=== PATIENT | female | born 1960 | race Two or more races ===

== ENCOUNTER 2019-09-19 21:43 | Emergency (ER) | payer MEDICAID ==
[~2019-09-19] VITALS: Ht 162.6 cm; Wt 73.9 kg
[2019-09-19 22:15] VITALS: BP 151/87
--- NOTE | 2019-09-19 22:48 | NUR ---
XRAY TAKEN AT THE BEDSIDE.
--- NOTE | 2019-09-19 23:20 | NUR ---
CALLING VALERIO RE: LISETTE LOPEZ.
--- NOTE | 2019-09-19 23:45 | NUR ---
ANGI BANDAGE APPLIED TO THE RT KNEE.
== END 2019-09-20 00:10 | disposition home or self-care (01) ==
LOC: ER 21:45
DX: M25.461 Effusion, right knee (principal); Z98.890 Other specified postprocedural states
CPT/HCPCS: 73564-TC

== ENCOUNTER 2019-09-26 22:15 | Emergency (ER) | payer MEDICAID, OTHER ==
[~2019-09-26] VITALS: Ht 165.1 cm; Wt 73.5 kg
[2019-09-26 22:18] VITALS: BP 155/91
== END 2019-09-27 00:11 | disposition home or self-care (01) ==
LOC: ER 22:20
DX: M25.561 Pain in right knee (principal); R22.41 Localized swelling, mass and lump, right lower limb; Z98.890 Other specified postprocedural states
CPT/HCPCS: 93971-TC

== ENCOUNTER 2023-03-28 20:03 | Emergency (ER) | payer OTHER ==
[~2023-03-28] VITALS: Ht 160 cm; Wt 70.3 kg
[2023-03-28 20:37] VITALS: BP 142/68; TEMP 98.1; O2SAT 98
[2023-03-28] MEDS ORDERED: ACETAMINOPHEN ES 500 MG TABLET ONE (21:25)
[2023-03-28] MEDS ORDERED: ACETAMINOPHEN 325 MG TABLET PO ONE (21:30)
[2023-03-28] MEDS ORDERED: NAPR-1164 PO (22:08)
== END 2023-03-28 22:15 | disposition home or self-care (01) ==
LOC: ER 20:08
DX: M17.12 Unilateral primary osteoarthritis, left knee (principal); Z98.890 Other specified postprocedural states
CPT/HCPCS: 73564-TC; 73590-TC

== ENCOUNTER 2024-02-14 11:07 | Emergency (ER) | payer OTHER ==
[~2024-02-14] VITALS: Ht 160 cm; Wt 72.6 kg
[~2024-02-14 11:07] MED LIST: NAPR-1164 PO
[2024-02-14 11:12] VITALS: BP 137/79; TEMP 98.3; O2SAT 98
[2024-02-14] MEDS ORDERED: GENT5DRO23 LEFTEYE (11:15)
== END 2024-02-14 11:22 | disposition home or self-care (01) ==
LOC: ER 11:07
DX: H01.004 Unspecified blepharitis left upper eyelid (principal); Z98.890 Other specified postprocedural states; Z79.899 Other long term (current) drug therapy